=== PATIENT | male | born 2005 | race Caucasian/White ===

== ENCOUNTER 2024-04-11 04:58 | Emergency (ER) | payer OTHER, SELFPAY ==
[2024-04-11 05:32] VITALS: BP 142/101
--- NOTE | 2024-04-11 08:34 | ED.GENMED ---
History of Present Illness
General
Chief Complaint: Anxiety
Time Seen by Provider: 04/11/24 08:33
History of Present Illness
History of Present Illness:
TIME OF INITIAL ENCOUNTER: 8:40 AM
HPI: The patient admits to accidentally using 300 mg of marijuana on 03/31/2024. Since that time he has been having severe anxiety episodes. He reports 'out of body' experiences. Symptoms recurred yesterday into today. Currently on initial
evaluation he spontaneously feels improved. They were also concerned about rash over the torso.
EXAM:
GENERAL: Well appearing in no distress
HEENT: Moist oral mucosa
CARDIOVASCULAR: No murmurs, normal heart rate, regular rhythm, No chest wall tenderness
PULMONARY: No respiratory distress, breath sounds are clear and equal
ABDOMEN: Soft with no peritoneal signs, no tenderness
NEUROLOGIC: Excellent strength all extremities, no coordination deficits
PSYCHIATRIC: Appropriate mental status, normal insight and judgement, no significant anxiety
EXTREMITIES: Nontender, no edema, moves all extremities equally
SKIN: There is some scattered macules in the upper torso along with some lesions more suggestive of tinea versicolor
NUMBER AND COMPLEXITY OF PROBLEMS ADDRESSED AT THE ENCOUNTER
� Chronic conditions affecting care: GERD, ADHD, anxiety
� Acute Exacerbation and/or Progression of Chronic Illness: This is an acute problem
� Differential Diagnosis includes: Anxiety, drug use, marijuana effects, hypoglycemia, hyperglycemia, electrolyte abnormality
AMOUNT AND/OR COMPLEXITY OF DATA TO BE REVIEWED AND ANALYZED
� I performed an independent evaluation of and my interpretation is:
EKG:
CT:
X-rays:
Laboratory Studies: UDS positive for marijuana only CBC unremarkable, chemistries unremarkable however glucose is 122 which was fasting.
Other:
� Review of other/old records: No old records available for review
� Clinical information was obtained by an independent historian: I spoke to mom at bedside but of note, patient does not want mom to know about the drug use recently
� Prescriptions/Medications Considered but not given: No clear indication for anxiolytic at this time.
� Further testing considered but not performed:
RISK OF COMPLICATIONS AND/OR MORBIDITY OR MORTALITY OF PATIENT MANAGEMENT
� Social determinants of health affecting care: Lives at home
� Discussion with other providers:
� Escalation of care including admission/observation vs risk of discharge considered: The patient seems to perseverate over the possibility of a blood sugar issue. Mom states that he has not had blood work done in a long time.
Labs obtained.
ANY OTHER UPDATES:
10:45 AM: I reassessed patient. Patient very well-appearing. Overall spontaneously feels improved. I also suggested to try clotrimazole [id number] regarding the rash over the patient tells me he is not bothered by the rash.
Phy Exam
Physical Exam
Physical Exam:
See HPI
Course
Orders/Labs/Results
Orders:
Orders
04/11/24 09:29
Complete Blood Count/With Diff Urgent
Comprehensive Metabolic Panel Urgent
Drug Screen, Urine [Urine Drug Abuse Screen] Urgent
Date Specimen was Collected: 04/11/24
Time Specimen was Collected: 09:19
Abnormal Lab Results
04/11/24
09:29
Lymphocytes % 19.7 L %
(20.5-51.1)
Glucose 122 H mg/dl
(70-99)
ALT 59 H U/L
(0-50)
U Marijuana (THC) Screen Positive H
(Negative)
04/11/24 09:29
04/11/24 09:29
Vital Signs
Initial and Last Documented VS:
Initial Vital Signs
Temp Pulse Resp BP Pulse Ox
37.1 C 119 20 142/101 100
04/11/24 05:32 04/11/24 05:32 04/11/24 05:32 04/11/24 05:32 04/11/24 05:32
Last Documented Vital Signs
Temp Pulse Resp BP Pulse Ox
37.1 C 111 20 131/81 98
04/11/24 05:32 04/11/24 09:33 04/11/24 09:33 04/11/24 09:33 04/11/24 09:33
*Critical Care Note
Total Time (30-74mins, 75-104mins- exclusive of procedures): Not Applicable
ED Attending Note
-
Portions of this chart may have been created with voice recognition software.� Occasional wrong word or��sound alike� substitutions may have occurred due to the inherent limitations of voice recognition software.
Discharge Plan
Departure
Patient Disposition: Home (Routine Discharge)
Date of Disposition: 04/11/24
Time of Disposition: 10:46
Patient with high blood pressure during this ER visit?: Yes
Discharge Problem:
Anxiety
Instructions: Anxiety, Adult (DC), BLOOD PRESSURE
Referrals:
NONE,* [Family Provider] -
Activity Restrictions/Additional Instructions:
Your white blood cell, and hemoglobin levels are normal. Glucose is minimally elevated at 122 but other basic blood work is normal. Follow-up with primary care doctor. Return here if worse or other concerns.
Interventions
Interventions:
*Risk Screen - Suicide Last Done: 04/11/24 05:32
*General Assessment Last Done: 04/11/24 05:32
*Neglect/Abuse Screening Last Done: 04/11/24 05:32
ED- Fall Risk Assessment Last Done: 04/11/24 05:32
*ED COVID-19 Vaccine History Last Done: 04/11/24 05:32
ED-Psychological Assessment Last Done: 04/11/24 10:21
Discharge Date and Time
Print Language: [id number]
[2024-04-11 09:33] VITALS: BP 131/81
[2024-04-11 09:45] LABS: % Basophils 0.1 % (0-2); % Eosinophils 0.8 % (0-6); % Immature Granulocytes 0.4 % (0-0.5); % Lymphocytes 19.7 % (20.5-51.1); % Monocytes 6.1 % (1.7-9.3); % Neutrophils 72.9 % (42.2-75.2); Absolute Eosinophils 0.1 10^3/uL (0-0.7); Absolute Lymphocytes 1.7 10^3/uL (1.2-3.4); Absolute Monocytes 0.5 10^3/uL (0.1-0.6); Absolute Neutrophils 6.2 10^3/uL (1.4-6.5); Hematocrit 41.4 % (39.0-52.0); Hemoglobin 14.3 g/dL (13.0-18.0); Mean Corp Hgb Conc. 34.5 g/dL (33.0-37.0); Mean Corpuscular Hgb 28.8 pg (27.0-31.0); Mean Corpuscular Volume 83.3 fL (80.0-94.0); Mean Platelet Volume 9.7 fL (7.4-10.4); Nucleated Red Blood Cells % 0 % (-); Platelet Count 266 10^3/uL (130-400); Red Blood Cell Count 4.97 10^6/uL (4.70-6.10); Red Cell Dist. Width 12.5 % (11.5-14.5); White Blood Cell Count 8.6 10^3/uL (4.8-10.8)
[2024-04-11 10:07] LABS: ALT (SGPT) 59 U/L (0-50); AST (SGOT) 34 U/L (17-59); Alkaline Phosphatase 69 U/L (38-126); Blood Urea Nitrogen 10 mg/dl (9-20); Carbon Dioxide 26 mmol/L (22-30); Chloride 100 mmol/L (98-107); Glucose 122 mg/dl (70-99); Sodium 139 mmol/L (135-145); Total Protein 7.5 g/dl (6.3-8.2); eGFR > 60.00
[2024-04-11 10:27] LABS: Amphetamines Negative (Negative); Barbiturates Negative (Negative); Benzodiazepines Negative (Negative); Buprenorphine Negative (Negative); Cocaine Negative (Negative); Marijuana Positive (Negative); Methadone Negative (Negative); Methamphetamines Negative (Negative); Opiates Negative (Negative); Phencyclidine Negative (Negative); Tricyclic Antidepressants Negative (Negative)
== END 2024-04-11 12:04 | disposition home or self-care (01) ==
LOC: EMR 04:58
PROVIDERS: EMERGENCY PHYSICIAN Emergency Medicine
DX: F41.9 Anxiety disorder, unspecified (principal); R03.0 Elevated blood-pressure reading, without diagnosis of hypertension
CPT/HCPCS: 99283; 80053; 80306; 85025